=== PATIENT | female | born 1975 | race Caucasian/White ===

== ENCOUNTER → 2021-12-02 12:36 | Outpatient (CLI) | payer OTHER, SELFPAY ==
--- NOTE | ~2021-12-02 | XR_ITS ---
XR lumbar spine min 4V 12/02/2021 13:00 Indication: Low back pain Procedure: 5 views lumbar spine Comparison: No prior studies for comparison. Findings: No fracture or traumatic malalignment. There is disc narrowing at L3-4, L4-5 and L5-S1. Mil d levocurvature of the lower lumbar spine. Pedicles intact. No evidence for spondylolisthesis. Sacral foramen are symmetric. Impression: 1: Mild-moderate lumbar spondylosis. Reviewed, dictated and finalized at location A. N [facility]IPPER Impression: 1: Mild-moderate lumbar spondylosis.
== END ==
PROVIDERS: PCP Nurse Practitioner Family; Visit Provider Nurse Practitioner Family
DX: M47.817 Spondylosis without myelopathy or radiculopathy, lumbosacral region (principal)
CPT/HCPCS: 72110

== ENCOUNTER 2024-04-20 05:24 | Emergency (ER) | payer OTHER, SELFPAY ==
[2024-04-20] VITALS (15 sets, daily range): BP systolic 109–134; BP diastolic 69–88; PULSE 59–82; RESP 14–20; TEMP 36.8; O2SAT 96–100
--- NOTE | ~2024-04-20 | XR_ITS ---
Portable chest x-ray Comparison: None Clinical History: Chest pressure Findings: Possible minimal basilar haziness. No consolidation or pleural effusion. Cardiomediastina l silhouette is unremarkable. Bones and soft tissues are unremarkable. Impression: Possible minimal bibasilar haziness, nonspecific. Correlate for minimal pulmonary edema. Reviewed, dictated and finalized at [facility]. Impression: Possible minimal bibasilar haziness, nonspecific. Correlate for minimal pulmona ry edema.
--- NOTE | 2024-04-20 05:25 | ECG_ITS ---
Test Date: 2024-04-20 05:33:47 Measurements Intervals [place] Rate: 56 P: 59 [place]: 122 QRS: -69 QRSD: 109 T: 18 QT: 427 QTc: 416 Interpretive Statements SINUS BRADYCARDIA LEFT ANTERIOR FASCICULAR BLOCK BASELINE ARTIFACT- I, II, III, AVR, AVL, AVF ABNORMAL ECG No previous ECG available for comparison Electronically Signed On 04-20-2024 06:16:57 CDT by Venkata Ortez D.O.
[2024-04-20 05:38] LABS: Basophils Absolute Auto 0.1 K/mm3 (0.0-0.1); Basophils Percent Auto 0.5 % (0.2-1.2); Eosinophils Absolute Auto 0.1 K/mm3 (0-0.3); Eosinophils Percent Auto 0.9 % (0-4.4); Hematocrit 40.1 % (37.0-47.0); Hemoglobin 13.4 g/dL (12.0-15.0); Immature Granulocyte Absolute 0.08 K/mm3 (0.00-0.031); Immature Granulocyte Percent A 0.6 % (0-0.5); Lymphocytes Absolute Auto 3.07 K/mm3 (0.9-3.2); Lymphocytes Percent Auto 23.5 % (18.3-44.2); Mean Corpuscular HGB Conc 33.4 g/dl (32-36); Mean Corpuscular Hemoglobin 30.8 pg (26-34); Mean Corpuscular Volume 92.2 fl (80-100); Monocytes Absolute Auto 0.9 K/mm3 (0.1-0.6); Monocytes Percent Auto 7.2 % (2.6-8.5); Neutrophils Absolute Auto 8.8 K/mm3 (1.3-6.7); Neutrophils Percent Auto 67.3 % (45.5-73.1); Platelet Count Result 287 k/mm3 (150-375); Red Blood Count 4.35 M/mm3 (4.2-5.4); Red Cell Distribution Width 15.5 % (11.5-14.5); White Blood Count 13.1 K/mm3 (4.5-10.0)
--- NOTE | 2024-04-20 05:45 | ED.CHESTPAIN ---
HPI - Chest Pain General Chief Complaint: Chest Pain <Lamar Musa MD - Last Filed: 04/22/24 07:03> Stated Complaint: Chest pain when deep breathing and moving <Lamar Musa MD - Last Filed: 04/22/24 07:03> Time Seen by Provider: 04/20/24 05:45 <Lamar Musa MD - Last Filed: 04/22/24 07:03> History of Present Illness HPI narrative: Patient is a 48-year-old female, active smoker, here with chest pain. Patient states her pain began when she woke up from a nap around 4-5 PM. 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 She states that when she woke up her arms were underneath her in a strange position and she began having midsternal chest pressure which she got up. She notes that the pain was minimal and ended up going into work. Around 11:00 a.m. this evening the pain seemed to worsen and now radiates between her upper back. She notes that the pain is significantly worsened with movements as well as deep breaths. She denies prior history of PE or DVT. She denies prior cardiac history, she has never seen a heel molder. She denies cough, congestion, fever, chills. she denies any trauma. She denies any travel or recent surgeries. <Lamar Musa MD - Last Filed: 04/22/24 07:03> Related Data Home Medications: Home Medications Medication Instructions Recorded Confirmed cholecalciferol (vitamin D3) 25 25 mcg PO DAILY 12/12/23 mcg (1,000 unit) capsule <Lamar Musa MD - Last Filed: 04/22/24 07:03> Allergies/Adverse Reactions: Allergies Allergy/AdvReac Type Severity Reaction Status Date / Time No Known Allergies Allergy Verified 04/20/24 05:33 <Lamar Musa MD - Last Filed: 04/22/24 07:03> Review of Systems Review of Systems: All systems reviewed & are unremarkable except as noted in HPI and below <Lamar Musa MD - Last Filed: 04/22/24 07:03> PMFSH Past Medical History Medical History: Medical History Anxiety Bipolar 1 disorder, depressed Cold sore Family history of schizophrenia Medical marijuana use PTSD (post-traumatic stress disorder) Tobacco use <Lamar Musa MD - Last Filed: 04/22/24 07:03> Family History Family History: Family History (Updated 12/12/23 @ 10:12 by Olga Beavers RT(R)) Mother Hypertension Cerebrovascular accident Depression Other Depression Grandparent Diabetes mellitus Heart disease Biliary tract cancer Grandparent Cancer Diabetes mellitus <Lamar Musa MD - Last Filed: 04/22/24 07:03> Social History Social History: Social History (Updated 12/12/23 @ 10:12 by Olga Beavers RT(R)) Smoking packs per day: 1 Smoking cigarettes per day: 20.0 Smoking status: Heavy tobacco smoker Tobacco type: cigarettes Alcohol intake: current Substance use: never Substance use type: does not use Living arrangements: with family Occupation/Education: occupation 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 HEAD: Normocephalic, atraumatic. EYES: PERRLA and EOMI. ENT: Nares clear. Mucous membranes moist. NECK: Supple. CHEST: Clear to auscultation. No respiratory distress. No reproducible chest wall tenderness HEART: Regular rate and rhythm. Normal peripheral pulses. ABDOMEN: Soft, nontender, nondistended. EXTREMITIES: Normal range of motion. No edema. SKIN: Warm, dry, no rash. NEURO: No focal deficits. Alert and oriented x3. PSYCH: Normal mood and affect. <Lamar Musa MD - Last Filed: 04/22/24 07:03> Course Course Emergency Course: Chart review performed, patient here with chest pain worse with moving arms and deep breath. Triage vitals normal. Patient seen evaluated, nontoxic appearing. She continues to h
[2024-04-20 05:50] LABS: Alanine Aminotransferase 10 U/L (6-35); Albumin Level 4.3 g/dL (3.5-5.1); Alkaline Phosphatase 72 U/L (38-126); Anion Gap 8 mmol/L (4-12); Aspartate Amino Transferase 18 U/L (14-36); Bilirubin,Total 0.4 mg/dL (0.2-1.3); Blood Urea Nitrogen 13 mg/dL (7-17); Carbon Dioxide 26 mmol/L (22-30); Chloride 100 mmol/L (98-107); Estimated CRCL calculation 100 ml/min; Estimated Glomerular Filt Rate > 60; Glucose 101 mg/dL (65-110); INR 0.9; Lipase 92 U/L (23-300); Partial Thromboplastin Time 26.7 Seconds (22.3-36.8); Potassium 4.2 mmol/L (3.4-5.0); Prothrombin Time 12.8 Seconds (11.1-14.7); Sodium 134 mmol/L (137-145)
[2024-04-20 06:00] LABS: Troponin I < 0.012 ng/mL (0.000-0.034)
[2024-04-20] MEDS: ONDANSETRON INJ 4 MG/2 ML VIAL IV PUSH (06:45)
[2024-04-20] MEDS: MORPHINE SULFATE (*CRX) 4 MG/ML INJ IV PUSH (06:45)
[2024-04-20] MEDS: ASPIRIN 81 MG CHEWABLE TABLET 324 MG PO (06:46)
[2024-04-20 07:02] LABS: D Dimer 0.57 ug/mL (<0.48)
[2024-04-20 08:07] LABS: NT Pro B Type Natriuretic Pept 45 pg/mL (19.9-100)
[2024-04-20 08:42] LABS: Influenza A QL RT-PCR Negative (Negative); Influenza B QL RT-PCR Negative (Negative); RSV RNA, RT-PCR Negative (Negative); SARS-CoV-2 RNA PCR Negative (Negative)
--- NOTE | 2024-04-20 08:42 | ECG_ITS ---
Test Date: 2024-04-20 08:54:40 Measurements Intervals [place] Rate: 53 P: 52 [place]: 114 QRS: -34 QRSD: 100 T: -4 QT: 452 QTc: 426 Interpretive Statements SINUS BRADYCARDIA WITH SHORT NC INTERVAL LEFT AXIS DEVIATION DELAYED PRECORDIAL R/S TRANSITION BORDERLINE T WAVE ABNORMALITY- INFERIOR LEADS BASELINE ARTIFACT- I, III, AVR, AVL, AVF, V1-V6 BORDERLINE ECG Compared to ECG 04/20/2024 05:33:47 NO SIGNIFICANT CHANGE Electronically Signed On 04-20-2024 10:11:57 CDT by Venkata Ortez D.O.
[2024-04-20 09:06] LABS: Troponin I < 0.012 ng/mL (0.000-0.034)
== END 2024-04-20 09:38 | disposition home or self-care (01) ==
PROVIDERS: Emergency Provider Student in an Organized Health Care Education/Training Program; PCP Nurse Practitioner Family
DX: J18.9 Pneumonia, unspecified organism (principal); R07.89 Other chest pain; R00.1 Bradycardia, unspecified; Z20.822 Contact with and (suspected) exposure to COVID-19; F41.9 Anxiety disorder, unspecified; F31.9 Bipolar disorder, unspecified; F17.210 Nicotine dependence, cigarettes, uncomplicated
CPT/HCPCS: 36415; 71045; 80053; 83690; 83880; 84484; 85025; 85380; 85610; 85730; 87637; 93005; 96374; 96375; 99284; A9270; J2270; J2405

== ENCOUNTER 2024-05-15 06:23 | Emergency (ER) | payer OTHER, SELFPAY ==
--- NOTE | ~2024-05-15 | XR_ITS ---
Left Knee Technique: AP, lateral, and oblique views were obtained. Clinical History: Pain and swelling Findings: No fracture or dislocation is seen. Osseous alignment is anatomic. Joint spaces are preserv ed without degenerative or erosive change. Soft tissues are unremarkable. No joint effusion is seen. Impression: Unremarkable left knee radiographs. Reviewed, dictated and finalized at location . Impression: Unremarkable left knee radiographs.
[2024-05-15 06:31] VITALS: BP 109/65; PULSE 107; RESP 18; TEMP 36.6; O2SAT 96
[2024-05-15 08:47] VITALS: BP 130/95; PULSE 78; RESP 15; TEMP 36.9; O2SAT 99
[2024-05-15] MEDS: KETOROLAC (*BKC) 60 MG/2 ML VIAL IM (09:02)
--- NOTE | 2024-05-15 09:13 | ED.GENADULT ---
HPI - General Adult General Chief complaint: Extremity Problem,Nontraumatic Stated complaint: knee pain Time Seen by Provider: 05/15/24 08:35 History of Present Illness HPI narrative: Patient is a 48-year-old female who presents ER with left knee pain. She was in her kitchen when she twisted her knee yesterday. Sudden onset pain. She has been elevating and resting it but still has pain with trying to walk and has a significant effusion. No numbness or tingling. She is not on any blood thinning medication. She did not fall and strike her head or suffer any additional injury. Related Data Home Medications Medication Instructions Recorded Confirmed cholecalciferol (vitamin D3) 25 25 mcg PO DAILY 12/12/23 mcg (1,000 unit) capsule Allergies Allergy/AdvReac Type Severity Reaction Status Date / Time No Known Allergies Allergy Verified 05/15/24 08:47 Review of Systems Constitutional: Constitutional: Reports no additional constitutional complaints Musculoskeletal: Musculoskeletal: Denies back pain, Denies myalgias, Reports arthralgias and Reports joint swelling Integumentary/Breasts: Skin/Breast: Reports system reviewed and no additional complaints, except as docu Neurologic: Reports system reviewed and no additional complaints, except as documented PMFSH Past Medical History Medical History Anxiety Bipolar 1 disorder, depressed Cold sore Family history of schizophrenia Medical marijuana use PTSD (post-traumatic stress disorder) Tobacco use Family History Family History (Updated 12/12/23 @ 10:12 by Olga Beavers, RT(R)) Mother Hypertension Cerebrovascular accident Depression Other Depression Grandparent Diabetes mellitus Heart disease Biliary tract cancer Grandparent Cancer Diabetes mellitus Social History Social History (Updated 12/12/23 @ 10:12 by Olga Beavers, RT(R)) Smoking packs per day: 1 Smoking cigarettes per day: 20.0 Smoking status: Heavy tobacco smoker Tobacco type: cigarettes Alcohol intake: current Substance use: never Substance use type: does not use Living arrangements: with family Occupation/Education: occupation 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 HEAD: Normocephalic, atraumatic. EXTREMITIES: Left knee with significant effusion that limits range of motion due to pain. Patient has diffuse pain along the joint line but no tenderness over the patellar tendon or patella. No abrasions or bruising. SKIN: Warm, dry, no rash. NEURO: Alert and oriented x3. PSYCH: Normal mood and affect. Course Vital Signs Vital signs: Vital Signs Temperature 97.8 F 05/15/24 06:31 Pulse Rate 107 H 05/15/24 06:31 Respiratory Rate 18 05/15/24 06:31 Blood Pressure 109/65 05/15/24 06:31 Pulse Oximetry 96 05/15/24 06:31 Oxygen Delivery Room Air 05/15/24 06:31 Temperature 98.5 F 05/15/24 08:47 Pulse Rate 78 05/15/24 08:47 Respiratory Rate 15 05/15/24 08:47 Blood Pressure 130/95 H 05/15/24 08:47 Pulse Oximetry 99 05/15/24 08:47 Oxygen Delivery Room Air 05/15/24 06:31 Medical Decision Making MDM Narrative Medical decision making narrative: -Course: No acute issues in the ER, educated about diagnosis and treatment plan and need for follow-up. -Co-morbidities complicating care: None -Social determinants of health: Works at a [employer] -External Chart Review: None -Hx from independent Sources: Patient -Independent interpretation of studies: Knee effusion, no fracture. -Interventions: Knee immobilizer with crutches. Toradol 60 mg IM. -Shared decision making / Disposition: Discharged home with orthopedic follow-up and a work note Vital Signs Vital Signs: Vital Signs Temperature 97
[2024-05-15 09:54] VITALS: BP 121/84; PULSE 75; RESP 16; TEMP 36.6; O2SAT 99
== END 2024-05-15 09:55 | disposition home or self-care (01) ==
PROVIDERS: Emergency Provider Emergency Medicine; PCP Nurse Practitioner Family
DX: S83.92XA Sprain of unspecified site of left knee, initial encounter (principal); M25.462 Effusion, left knee; F17.210 Nicotine dependence, cigarettes, uncomplicated; X50.9XXA Other and unspecified overexertion or strenuous movements or postures, initial encounter
CPT/HCPCS: 73562; 96372; 99283; J1885

== ENCOUNTER 2024-05-25 12:29 | Outpatient (CLI) | payer OTHER, SELFPAY ==
--- NOTE | ~2024-05-25 | MR_ITS ---
EXAMINATION: MR knee LT wo con DATE: 05/25/2024 13:18 INDICATION: M23.92 - Unspecified internal derangement of left knee TECHNIQUE: Magnetic resonance imaging (MRI) of the left knee was performed without intravenous contra st. Sequences included axial PD-weighted FS FSE, coronal PD-weighted FSE and PD-weighted FS FSE, sagi ttal PD-weighted FSE, and sagittal T2-weighted FS FSE. COMPARISON: X-ray left knee 05/15/2024. FINDINGS: Medial compartment: Meniscus and cartilage intact. Lateral compartment: Bucket-handle tear of the lateral meniscus. Lateral cartilage intact. Patellofemoral compartment: Cartilage and retinacula intact. Ligaments and tendons: Complete ACL tear. The PCL, MCL, and LCL are intact. Intermediate abnormal signal and focal thickenin g of the distal gracilis tendon. Remaining flexor and extensor tendons are intact. Fluid: Large volume joint fluid. Small Arredondo's cyst. Osseous/other: Mild marrow hyperintensity in the posterior aspect of the lateral tibial plateau. No suspicious diffu se marrow signal. IMPRESSION: Complete ACL tear. Bucket-handle type tear of the lateral meniscus. Mild lateral tibial plateau contusion. Large left knee joint effusion. Pes anserine strain. Reviewed, dictated and finalized at location K.
== END 2024-05-25 12:30 ==
LOC: GOSHIMG 12:30
PROVIDERS: PCP Orthopaedic Surgery; Visit Provider Orthopaedic Surgery
DX: S83.512A Sprain of anterior cruciate ligament of left knee, initial encounter (principal); S80.02XA Contusion of left knee, initial encounter; M25.462 Effusion, left knee; M76.892 Other specified enthesopathies of left lower limb, excluding foot; X58.XXXA Exposure to other specified factors, initial encounter
CPT/HCPCS: 73721

== ENCOUNTER 2024-08-21 11:52 | Outpatient (CLI) | payer OTHER, SELFPAY ==
[2024-08-21 12:19] LABS: Basophils Absolute Auto 0.1 K/mm3 (0.0-0.1); Basophils Percent Auto 0.6 % (0.2-1.2); Eosinophils Absolute Auto 0.1 K/mm3 (0-0.3); Eosinophils Percent Auto 0.9 % (0-4.4); Hematocrit 42.8 % (37.0-47.0); Hemoglobin 14.5 g/dL (12.0-15.0); Immature Granulocyte Absolute 0.05 K/mm3 (0.00-0.031); Immature Granulocyte Percent A 0.5 % (0-0.5); Lymphocytes Absolute Auto 3.45 K/mm3 (0.9-3.2); Lymphocytes Percent Auto 35.8 % (18.3-44.2); Mean Corpuscular HGB Conc 33.9 g/dl (32-36); Mean Corpuscular Hemoglobin 30.2 pg (26-34); Mean Corpuscular Volume 89.2 fl (80-100); Monocytes Absolute Auto 0.8 K/mm3 (0.1-0.6); Monocytes Percent Auto 8.2 % (2.6-8.5); Neutrophils Absolute Auto 5.2 K/mm3 (1.3-6.7); Platelet Count Result 312 k/mm3 (150-375); Red Cell Distribution Width 15.8 % (11.5-14.5); White Blood Count 9.7 K/mm3 (4.5-10.0)
[2024-08-21 13:42] LABS: Alanine Aminotransferase 14 U/L (6-35); Albumin Level 4.6 g/dL (3.5-5.1); Alkaline Phosphatase 75 U/L (38-126); Anion Gap 7 mmol/L (4-12); Aspartate Amino Transferase 46 U/L (14-36); Bilirubin,Total 0.6 mg/dL (0.2-1.3); Blood Urea Nitrogen 5 mg/dL (7-17); Calcium 9.5 mg/dL (8.4-10.2); Carbon Dioxide 25 mmol/L (22-30); Chloride 104 mmol/L (98-107); Estimated Glomerular Filt Rate > 60; Glucose 97 mg/dL (65-110); Potassium 4.1 mmol/L (3.4-5.0); Sodium 136 mmol/L (137-145)
== END 2024-08-21 11:53 | disposition home or self-care (01) ==
LOC: ANHLAB 11:53
PROVIDERS: PCP Nurse Practitioner Family; Visit Provider Internal Medicine Hematology & Oncology
DX: I26.99 Other pulmonary embolism without acute cor pulmonale (principal)
CPT/HCPCS: 36415; 80053; 85025

== ENCOUNTER 2024-09-18 11:04 | Outpatient (CLI) | payer OTHER, SELFPAY ==
[2024-09-21 12:18] LABS: Homocysteine 9.9 umol/L (<10.4)
[2024-09-22 14:39] LABS: Lupus dRVVT Screen 38 sec (< OR = 45); PTT-LA Screen 33 sec (< OR = 40)
== END 2024-09-18 11:05 | disposition home or self-care (01) ==
PROVIDERS: PCP Nurse Practitioner Family; Visit Provider Internal Medicine Hematology & Oncology
DX: I26.99 Other pulmonary embolism without acute cor pulmonale (principal)
CPT/HCPCS: 36415; 81240; 81241; 83090; 85300; 85303; 85306; 85613; 85730; 86146

== ENCOUNTER 2024-09-22 14:15 | Outpatient (RCR) | payer OTHER, SELFPAY ==
--- NOTE | 2024-08-26 17:59 | OPREHPOC ---
Outpatient Therapy Plan of Care This is a Multidisciplinary Plan of Care that may contain components documented by all disciplines (PT, OT, and ST.) PT Problem 1 PT Problem #1 Knowledge Deficit PT Goal 1 Goal / Goal Update Pt will be independent in HEP Pt will verbalize understanding of diagnosis and prognosis Target Visit 5 PT Problem 2 PT Problem #2 Pain PT Goal 1 Goal / Goal Update Pt will report highest pain level of 5/10 Target Visit 5 PT Goal 2 Goal / Goal Update Pt will report highest pain level of 2/10 Target Visit 10 PT Problem 3 PT Problem #3 Impaired Strength PT Goal 1 Goal / Goal Update Pt will demo TRAM strength 3+/5 Target Visit 10 PT Goal 2 Goal / Goal Update Pt will demo 4/5 glutes to improve lumbopelvic stability Target Visit 10
--- NOTE | 2024-08-26 17:59 | PTOPEVAL1 ---
Assessment and note entered by Love Be, PT Evaluation Information Assessment Status Evaluation Diagnosis M51.369 ICD-10 Condition Codes (PT) Pain in low back M54.50,Difficulty Walking R26.2, R26.9,Weakness R53.1 Other ICD-10 Condition Codes ( sacroiliitis, PT) Onset ~1month for back, knee injury in March 2024 Subjective Information Muscle relaxers helped, but would only take when she really needed them. Pt has stairs and when her back flares up stairs are terrible If back was acting up would go to stand up and would feel a stab like a biofuels technology development manager knife on the right side denies pain, numbness, tingling in RLE. This last time it acted up butt muscle was hurting but not down the leg Reports last time was in tears. It will grab with position change, then with rest it stops right away but the soreness remains. Reported Pain Level Pain Score 0: Self Report Assessment PT Clinical Summary Pt presents with history of lumbar degenerative disk disease. States her back had done well for years until about a month ago. Pain increases with forward lean, and sit<>anthropological linguist the R SIJ area. Special testing and alignment also suggestive of R SIJ irritation. Pt also demo's gait abnormality appearing related to her left knee issues which is very likely to have flared up her back. She has poor lumbopelvic core strength as well. Pt will greatly benefit from physical therapy in order to improve core strength and stability, reduce pain, and educate on maintenance until her knee issues are corrected to assist in returning to PLOF. Plan of Care Interventions Electrical Stimulation,Gait Training,Hot Pack/Cold Pack,Manual Therapy,Mechanical Traction,Neuro Re- education,Patient/Caregiver Educati,Therapeutic Activities,Therapeutic Exercise,Self-Care/Home Management,Ultrasound,Other Other Interventions Taping, bracing, PT Services Indicated Yes Treatment Frequency and 1-2x 10 visits Duration These treatments will address the objective and functional deficits as defined above. The patient will be advanced safely and appropriately in order for the patient to progress towards his/her prior level of function. Additional exercises will be introduced and as well as a comprehensive home exercise program upon discharge, if needed, ?to ensure carryover of functional gains achieved in the clinic. This treatment plan has been reviewed and agreement upon by the patient.
--- NOTE | 2024-09-14 10:04 | PCPTNOTE ---
Patient did not show up for scheduled appointment this date. When called about her appt, pt stated she forgot about it.
--- NOTE | 2024-09-30 14:42 | PCPTNOTE ---
Patient called & cancelled scheduled appointment this date, no reason given. Clerical states pt was tearful and reported to clerical she was having a hard day . Appointment cancelled, will continue therapy as able.
--- NOTE | 2024-10-02 13:11 | PCPTNOTE ---
Patient did not show up for scheduled appointment this date.
--- NOTE | 2024-10-06 15:08 | PCPTNOTE ---
Patient called & cancelled scheduled appointment this date, no reason given
--- NOTE | 2024-10-08 13:31 | PTOPDC ---
Assessment and note entered by Love Be, PT Evaluation Information Assessment Status Discharge - Pt Not Present Diagnosis M51.369 ICD-10 Condition Codes (PT) Pain in low back M54.50,Difficulty Walking R26.2, Abnormalities of gait and mobility R26.9,Weakness R53.1 Other ICD-10 Condition Codes ( sacroiliitis, PT) Assessment PT Clinical Summary Pt attended 4 sessions including evaluation, had two no-call, no-show appointments and multiple cancellations within 24 hours of her appointment. Thus patient is being discharged for non- attendance in accordance with department's attendance policy. Goals were unmet at time of discharge. Plan of Care PT Services Indicated no
== END 2024-10-08 15:53 | disposition home or self-care (01) ==
LOC: ANHHIPT 14:15
PROVIDERS: PCP Nurse Practitioner Family; Visit Provider Nurse Practitioner Family
DX: M51.369 Other intervertebral disc degeneration, lumbar region without mention of lumbar back pain or lower extremity pain (principal)
CPT/HCPCS: 97014; 97110; 97140; 97161; 97530; G0283

== ENCOUNTER 2024-10-22 00:44 | Day surgery (SDC) | payer OTHER, SELFPAY ==
[2024-10-16 09:05] VITALS: BMI 23.6
--- NOTE | 2024-10-16 09:12 | PC.NURSE ---
Report to the Outpatient Waiting Room, entrance under the green pavilion located off [facility], at time _0830_ on date _[id number]_. Planned Procedure Time: _1030_.? Time changes happen often and if your time is changed the preop area will call you the afternoon before. - You and your visitor will be asked to self-screen and do not enter if you have any COVID symptoms. Please call surgeon if you need to reschedule. - A mask is optional within the hospital at this time. Patients may have clear liquids (water, carbonated beverages, clear teas, apple juice) until 3 hours prior to surgery with a maximum of 20 ounces. - No food from midnight until time of surgery and no smoking. This includes no chewing gum, candy or mints. Take only the following medications with a SIP of water on the morning of surgery: ___Paroxetine and if needed Hydrocodone___ DO NOT STOP ANY OF YOUR OTHER PRESCRIPTION MEDICATIONS PRIOR TO SURGERY EXCEPT THE FOLLOWING Medications to discontinue per physician ____Eliquis and Vitamin D3 Date to take last nqeb____[id number]____ Please no make-up, nail yoruba, hairspray, perfume, deodorant, or body powder the day of surgery.? No jewelry (including any body piercings) or valuables the day of surgery, leave them at home.? Please take a shower or bath the night before, or the morning of, surgery with an antibacterial soap.? Wear comfortable, loose fitting clothing.? - Jewelry must be removed prior to entering the operating room.? Rings and piercings that are not removed may be cut off. - The hospital will not accept responsibility for valuables.? - Please leave all valuables, including medications, at home the day of surgery. If you are going home after surgery, a licensed minibus driver must drive you home.? - NO public transportation without another adult if you receive anesthesia. - We recommend that an adult stay with you for 24 hours following discharge. - We also recommend that you do not drive, make important decision, drink alcoholic beverages, or take any drugs that were not prescribed by your health care provider for at least 24 hours after your discharge time. Follow any additional instructions given to you from your surgeon. Telephone instructions given to __Galilea__and asked if any additional questions and then verbalized understanding. Patient advised to call surgeon office or pre surgery nurse liaison [phone] if any additional questions.
[2024-10-22] VITALS (10 sets, daily range): BP systolic 103–135; BP diastolic 73–93; PULSE 70–91; RESP 12–19; TEMP 36.4–36.6; O2SAT 97–100
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
[2024-10-22] MEDS: ACETAMINOPHEN 500 MG TABLET 1000 MG PO (09:30)
[2024-10-22] MEDS: LACTATED RINGERS 1,000 ML 30 ML IV CONT ×2 (09:30→11:57)
[2024-10-22] MEDS: KETOROLAC 15 MG/ML VIAL (*BKC) IV PUSH (09:30)
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
--- NOTE | 2024-10-22 10:25 | WPDHPUPDATE1 ---
History and Physical Update Update Date/Time: 10/22/24 10:25 History and Physical has been reviewed, including an updated exam of the patient. There are NO changes in the patient's condition. Risks, benefits, and alternatives have been discussed and questions answered. Patient agrees to proceed with procedure.
[2024-10-22] MEDS: ceFAZolin 2 GM/D5W 50 ML 2 GM/50 ML BAG IVPB (10:30)
[2024-10-22] MEDS: SODIUM CHLORIDE 0.9% IV 37.7 ML, MORPHINE SULFATE INJ (*CRX) 2 MG, ROPivacaine HCL 1% 2... INFILTRATE (11:06)
--- NOTE | 2024-10-22 12:05 | P.OP_ITS ---
Procedure Note - Detailed Date of Procedure 10/22/24 Pre-op Diagnosis 1. Left knee ACL tear 2. Bucket handle tear lateral meniscus tear Post-op Diagnosis Other (Left knee 1. Partial ACL tear 2. Bucket-handle lateral meniscus tear) Procedure Performed Arthroscopic partial lateral meniscectomy, left knee with partial ACL debridement. Surgeon Sohail Stephenson MD Anesthesia General Findings The anteromedial bundle of the ACL was torn with loose fibers. These were debrided. The remaining posterolateral bundle was intact and functioning. The Laquita's test demonstrated excellent functional stability and intact femoral and tibial attachments of the ligament. The lateral meniscus was displaced into the intercondylar notch with a large complex tear pattern including a parrot- beak type posterior horn tear. This was treated with debridement to a stable rim. There were areas of chondromalacia on the medial and lateral femoral condyle grade 1/2. There was 1 area of healed grade 3 chondromalacia on the anterior medial femur. The patellofemoral articulation was healthy. There were no other loose bodies or abnormal findings in the suprapatellar pouch, medial, or lateral gutters. Description of Procedure The patient was identified and the surgical site confirmed and signed in the preoperative holding area. Antibiotics were started per protocol, and the patient was brought to the operative room and transferred to the OR table. A general anesthetic was administered. Supine position with the operative lower extremity position in the leg cazares after placement of a well padded tourniquet. The leg support was lowered and the contralateral limb was supported with a soft bolster. The knee was prepped and draped in the usual sterile fashion. A time-out was performed. The portal sites were marked and infiltrated with the anesthetic mixture. The tourniquet was not inflated due to the history of DVT. Standard inferolateral, superomedial, and inferomedial portals were established. Inflow was obtained with the saline pump. The camera was int roduced. Diagnostic inspection of the joint was accomplished. There were torn ACL fibers in the notch, however a large portion of the ACL appeared intact. The remaining stump of anterior fibers of ACL were debrided from the tibia. The posterior row lateral bundle was intact and appeared essentially normal. Modest debridement with the radiofrequency probe and low energy setting shrinkage of the ACL was performed at the margins. Excellent functional ACL stability with Laquita's test confirmed. The meniscus was displaced into the notch and the posterior horn was extensively torn in a complex pattern. The meniscus was debrided with the arthroscopic shaver and punches until stable. The radiofrequency probe was also used for further d?bridement. Gentle chondroplasty was performed on the medial femoral condyle. The arthroscopic instruments were removed and wounds closed with subcutaneous 4- 0 Monocryl absorbable suture. Steri strips and a sterile dressing were applied. A light elastic wrap was placed. The patient was extubated and brought to the recovery room in stable condition. Estimated Blood Loss 5 Drains No Complications No immediate complications Condition Stable Disposition PACU [facility] Billing Surgery - Charge Forward: Surgery Billing
[2024-10-22] MEDS: fentaNYL CITRATE INJ (*CRX) 100 MCG/2 ML VIAL 25 MCG IV PUSH ×3 (12:41→12:55)
--- NOTE | 2024-10-22 12:58 | SUR.PHASEI ---
DR. RODRIGEZ HERE TALKING TO PT RE: SURGERY. PT CONVERSANT AND AWARE.
[2024-10-22] MEDS: oxyCODONE HCL (*CRX) 5 MG TAB IR PO (13:34)
== END 2024-10-22 14:05 | disposition home or self-care (01) ==
PROVIDERS: PCP Nurse Practitioner Family; Visit Provider Orthopaedic Surgery
PROC: (CPT 29888; principal; 2024-10-22 10:30)
DX: S83.272A Complex tear of lateral meniscus, current injury, left knee, initial encounter (principal); S83.512A Sprain of anterior cruciate ligament of left knee, initial encounter; M94.262 Chondromalacia, left knee; X50.0XXA Overexertion from strenuous movement or load, initial encounter; F31.9 Bipolar disorder, unspecified; F43.10 Post-traumatic stress disorder, unspecified; F41.9 Anxiety disorder, unspecified; F17.210 Nicotine dependence, cigarettes, uncomplicated; F12.90 Cannabis use, unspecified, uncomplicated; Z79.01 Long term (current) use of anticoagulants; Z79.891 Long term (current) use of opiate analgesic; Z86.718 Personal history of other venous thrombosis and embolism; Z80.0 Family history of malignant neoplasm of digestive organs; Z82.49 Family history of ischemic heart disease and other diseases of the circulatory system
CPT/HCPCS: 29881; A9270; J0171; J0690; J1100; J1885; J2003; J2250; J2270; J2371; J2405; J2704; J2795; J3010; J7120; L1830

== ENCOUNTER 2024-11-27 15:45 | Outpatient (RCR) | payer OTHER, SELFPAY ==
--- NOTE | 2024-11-05 19:02 | OPREHPOC ---
Outpatient Therapy Plan of Care This is a Multidisciplinary Plan of Care that may contain components documented by all disciplines (PT, OT, and ST.) PT Problem 1 PT Problem #1 Knowledge Deficit PT Goal 1 Goal / Goal Update Pt will demo good understanding of diagnosis and prognosis Pt will perform knee flexibility, strength and stability HEPs indep Target Visit 18 PT Problem 2 PT Problem #2 Pain PT Goal 1 Goal / Goal Update Pt will report 1-2/10 level of pain to the back and knee when performing standing and weight bearing tasks. Target Visit 20 PT Problem 3 PT Problem #3 Impaired Range of Motion PT Goal 1 Goal / Goal Update Pt will demo full active ROM of lumbar and knee to all tested planes Target Visit 18 PT Problem 4 PT Problem #4 Impaired Strength PT Goal 1 Goal / Goal Update Pt will demo 5/5 strength to all tested planes for BLE and lumbar area Target Visit 20 PT Problem 5 PT Problem #5 Impaired Functional Mobility PT Goal 1 Goal / Goal Update Pt will perform SLS for 10 sec or longer each LE with improved stability. Pt will perform indep ambulation on various surfaces and stairs without pain and discomfort. Target Visit 20
--- NOTE | 2024-11-05 19:02 | PTOPEVAL1 ---
Assessment and note entered by Bernadine Olivier, PT Evaluation Information Assessment Status Evaluation Diagnosis Z48.89 ICD-10 Condition Codes (PT) Pain in low back M54.50,Radiculopathy, lumbar region M54.16,Pain in left knee M25.562,Difficulty Walking R26.2,Abnormalities of gait and mobility R26.9,Weakness R53.1 Onset 2014 (back Pain); 10/22/2024 L knee surgery Subjective Information Pt reports she underwent L knee surgery 2024. States feeling some discomfort and soreness, stiffness on the operated LE the day after surgery but is not feeling it now; notice continued stiffness only with weight bearing, walking up/down 12 steps stairs with B railings, getting in and out car. Also, pt has had chronic back problem which significantly limit her mobility during flare ups, 10/10 at worst takes a few days, Aggravating factors include reaching and bending over, turning and twisting in bed; Pt takes tylenol, resting on the recliner with a modified lumbar pillow and readjusting position for relief. Reported Pain Level Pain Score 0,0: Self Report Assessment PT Clinical Summary Pt presents to therapy s/p Arthroscopic partial lateral meniscectomy, left knee with partial ACL debridement by Dr. Stephenson on 10/22/2024. Demos pain with prolonged weight bearing, post-op swelling to L knee, decreased mobility and functional strength impacting performance of IADLs , indep community ambulation and significantly limited standing tolerance which impact her ability to go back to work at this time. She will greatly benefit from skilled PT interventions to return to PLOF at painfree level. Plan of Care Interventions Check Out for Orthotic/Prosthetic,Electrical Stimulation,Gait Training,Hot Pack/Cold Pack, Intermittent Compression Pump,Mechanical Traction, Neuro Re-education,Patient/Caregiver Education, Therapeutic Activities,Therapeutic Exercise, Ultrasound,Other Other Interventions IASTM, Taping PT Services Indicated Yes Treatment Frequency and 2x/wk x 20 visits Duration These treatments will address the objective and functional deficits as defined above. The patient will be advanced safely and appropriately in order for the patient to progress towards his/her prior level of function. Additional exercises will be introduced and as well as a comprehensive home exercise program upon discharge, if needed, ?to ensure carryover of functional gains achieved in the clinic. This treatment plan has been reviewed and agreement upon by the patient.
--- NOTE | 2024-11-23 11:38 | PCPTNOTE ---
Patient called & cancelled scheduled appointment this date due to car troubles
--- NOTE | 2024-11-28 17:25 | PTOPPROG ---
Assessment and note entered by Bernadine Olivier, PT Re-Eval Information Assessment Status Progress Diagnosis Z48.89 ICD-10 Condition Codes (PT) Pain in low back M54.50,Radiculopathy, lumbar region M54.16,Pain in left knee M25.562,Difficulty Walking R26.2,Abnormalities of gait and mobility R26.9,Weakness R53.1 Onset 2014 (back Pain); 10/22/2024 L knee surgery Subjective Information Pt reports her back does not bother her anymore as much as it did prior to receiving therapy. States knee continued swelling worse after being on her feet at work, resolved after resting/elevating. Getting in and out of lowered car or seat but other than that, feels better and no pain recently , stairs had been easier to navigate. Assessment PT Clinical Summary Pt received a total of 8 treatment sessions and has made good progress with L knee ROM and strength, continue to demo mild instability and swelling at this time. Reports back has definitely been better and during the 2 flare up episodes, the pain did not persist like it used to in the past. During the test and measures, pt failed the SLS test with definite LOB secondary to pelvic drop when standing on LLE. Also noted aden's cyst and increased discomfort with L knee flexion. Pt would like to continue to participate in therapy to address deficits and improve safety. Plan of Care Interventions Check Out for Orthotic/Prosthetic,Electrical Stimulation,Gait Training,Hot Pack/Cold Pack, Intermittent Compression Pump,Manual Therapy,Neuro Re-education,Patient/Caregiver Education, Therapeutic Activities,Therapeutic Exercise, Ultrasound,Other Other Interventions IASTM, Taping PT Services Indicated Yes Treatment Frequency and 2x/wk x 8 visits Duration These treatments will address the objective and functional deficits as defined above. The patient will be advanced safely and appropriately in order for the patient to progress towards his/her prior level of function. Additional exercises will be introduced and as well as a comprehensive home exercise program upon discharge, if needed, ?to ensure carryover of functional gains achieved in the clinic. This treatment plan has been reviewed and agreement upon by the patient.
--- NOTE | 2024-12-02 13:32 | PTOPPROG ---
Assessment and note entered by Love Be, PT Evaluation Information Assessment Status Discharge - Pt Not Present Diagnosis Z48.89 ICD-10 Condition Codes (PT) Pain in low back M54.50,Radiculopathy, lumbar region M54.16,Pain in left knee M25.562,Difficulty Walking R26.2,Abnormalities of gait and mobility R26.9,Weakness R53.1 Onset 2014 (back Pain); 10/22/2024 L knee surgery Subjective Information Pt reports her back does not bother her anymore as much as it did prior to receiving therapy. States knee continued swelling worse after being on her feet at work, resolved after resting/elevating. Getting in and out of lowered car or seat but other than that, feels better and no pain recently , stairs had been easier to navigate. Assessment PT Clinical Summary Pt attended 8 visits with physical therapist for her back pain and post-meniscectomy for her knee. She has made significant progress with both diagnosis, demonstrates improved range and swelling in the knee. Demonstrates decreased single limb stability, but has reported decreased intensity and time with her back flare ups. However, unfortunately the patient has cancelled multiple appointments and is currently outside our attendance policy, thus we are discharging her plan of care due to nonattendance. Plan of Care PT Services Indicated No These treatments will address the objective and functional deficits as defined above. The patient will be advanced safely and appropriately in order for the patient to progress towards his/her prior level of function. Additional exercises will be introduced and as well as a comprehensive home exercise program upon discharge, if needed, ?to ensure carryover of functional gains achieved in the clinic. This treatment plan has been reviewed and agreement upon by the patient.
== END 2024-12-02 14:45 | disposition home or self-care (01) ==
LOC: ANHHIPT 15:45
PROVIDERS: PCP Nurse Practitioner Family; Visit Provider Orthopaedic Surgery
DX: M54.16 Radiculopathy, lumbar region (principal)
CPT/HCPCS: 97014; 97016; 97110; 97112; 97140; 97161; 97530; 97750; G0283